=== PATIENT | female | born 1960 | race African-American/Black ===

== ENCOUNTER 2018-12-25 12:19 | Inpatient (IN) | payer OTHER ==
[2018-12-25 12:42] VITALS: BMI 16.8
--- NOTE | 2018-12-25 13:26 | HP ---
CIWA Score Nausea/Vomitin Muscle Tremors: 4-Moderate,w/Arms Extend Anxiety: 4-Mod. Anxious/Guarded Agitation: 3 Paroxysmal Sweats: No Perspiration Orientation: 0-Oriented Tacttile Disturbances: 0-None Auditory Disturbances: 2-Mild Harshness/Frighten Visual Disturbances: 2-Mild Sensitivity Headache: 0-None Present CIWA-Ar Total Score: 17 - Admission Criteria OASAS Guidelines: Admission for Medically Managed Detox: Requires at least one of the followin. CIWA greater than 12 2. Seizures within the past 24 hours 3. Delirium tremens within the past 24 hours 4. Hallucinations within the past 24 hours 5. Acute intervention needed for co occurring medical disorder 6. Acute intervention needed for co occurring psychiatric disorder 7. Severe withdrawal that cannot be handled at a lower level of care (continued vomiting, continued diarrhea, abnormal vital signs) requiring intravenous medication and/or fluids 8. Patient presents the following: CIWA greater than 12 Admission Criteria Met: Admission criteria met Admission ROS S - HPI Allergies/Adverse Reactions: Allergies Allergy/AdvReac Type Severity Reaction Status Date / Time No Known Allergies Allergy Verified 12/25/18 14:06 History of Present Illness: patient here requesting detox from substance use , reports 6-pk beer /day since age 31 , reports drowsiness , denies tremors, + blackouts , denies seizures , latest use yesterday , current ANIYAH 0.002 , reports fall 1 week ago while intoxicated , went to [facility] . , c/o LBP XR neg . cocaine 200-300 $/day denies IVDU , latest use yesterday , use x 10 years tobacco : 2-3 cigs/day PMHx : HIV dx 1992 , ID clinic [facility], latest refill 1 week ago , asthma since age 21 ( hospitalized, not intubated ) PSHx : denies PSych : bipolar d/o , denies current SI / HI meds - see list . Exam Limitations: Clinical Condition - Ebola screening Have you traveled outside of the country in the last 21 days: No Have you had contact with anyone from an Ebola affected area: No Have you been sick,other than usual withdrawal symptoms: No Do you have a fever: No - Review of Systems Constitutional: See HPI EENT: reports: Other (denies dysphagia, reading glasses) Respiratory: reports: See HPI Cardiac: reports: No Symptoms Reported GI: reports: See HPI : reports: No Symptoms Reported Musculoskeletal: reports: Back Pain Integumentary: reports: Rash (x 1 week left side of face) Neuro: reports: See HPI Psychiatric: reports: Orientated x3, Agitated, Anxious Patient History - Patient Medical History Hx Anemia: No Hx Asthma: Yes Hx Chronic Obstructive Pulmonary Disease (COPD): No Hx Cancer: No Hx Cardiac Disorders: No Hx Congestive Heart Failure: No Hx Hypertension: No Hx Hypercholesterolemia: No Hx Pacemaker: No HX Cerebrovascular Accident: No Hx Seizures: No Hx Dementia: No Hx Diabetes: No Hx Gastrointestinal Disorders: No Hx Liver Disease: No Hx Genitourinary Disorders: No Hx Sexually Transmitted Disorders: No Hx Renal Disease (ESRD): No Hx Thyroid Disease: No Hx Human Immunodeficiency Virus (HIV): Yes (not medicated at present ) Hx Hepatitis C: No Hx Depression: Yes (seroquel user ) Hx Suicide Attempt: No Hx Schizophrenia: No - Patient Surgical History Past Surgical History: No Hx Neurologic Surgery: No Hx Cataract Extraction: No Hx Cardiac Surgery: No Hx Lung Surgery: No Hx Breast Surgery: No Hx Breast Biopsy: No Hx Abdominal Surgery: No Hx Appendectomy: No Hx Cholecystectomy: No Hx Genitourinary Surgery: No Hx Section: No Hx Orthopedic Surgery: No Anesthesia Reaction: No - PPD History Date: 12/28/15 - Reproductive History Last Menstrual Period: 01/02/11 (last spotting 1 year ago, had paptest 1 year ago ) - Smoking Cessation Smoking history: Current every day smoker Have you smoked in the past 12 months: Yes Aproximately how many cigarettes per day: 20 Hx Chewing Tobacco Use: No Initiated information on smoking cessation: No - Substances Abused Cocaine Route: Inhalation Frequency: 3-6 times per week Amount used: $100 Age of first use: 21 Date of Last Use: 12/24/18 Alcohol-beer Route: Oral Frequency: Daily Amount used: 1-6 pk. Age of first use: 31 Date of Last Use: 12/24/18 Admission Physical Exam BHS - Vital Signs Vital Signs: Vital Signs - 24 hr 12/25/18 12:33 Temperature 97.8 F Pulse Rate 77 Respiratory 20 Rate Blood Pressure 94/58 L - Physical General Appearance: Yes: Disheveled, Moderate Distress, Alcohol on Breath, Thin , Irritable, Anxious HEENTM: Yes: EOMI, Normocephalic, Normal Voice Respiratory: Yes: Chest Non-Tender, Normal Breath Sounds (o2 sat 98%) Neck: Yes: No masses,lesions,Nodules, Trachea in good position Cardiology: Yes: Regular Rhythm, Regular Rate, S1, S2, Tachycardia Abdominal: Yes: Normal Bowel Sounds, Soft Genitourinary: Yes: Within Normal Limits Back: Yes: Normal Inspection Musculoskeletal: Yes: full range of Motion, Other (unsteady gait) Extremities: Yes: Normal Capillary Refill, Normal Range of Motion, Tremors Neurological: Yes: Motor Strength 5/5 Integumentary: Yes: Normal Color - Diagnostic (1) Alcohol dependence with uncomplicated withdrawal Current Visit: No Status: Acute (2) Asthma Current Visit: No Status: Chronic Qualifiers: Asthma severity: unspecified severity Asthma complication type: uncomplicated (3) Cocaine dependence, uncomplicated Current Visit: No Status: Chronic (4) Nicotine dependence Current Visit: No Status: Chronic Qualifiers: Nicotine product type: cigarettes Substance use status: uncomplicated Qualified Code(s): F17.210 - Nicotine dependence, cigarettes, uncomplicated BHS Breath Alcohol Content Breath Alcohol Content: 0.002 Urine Pregancy Test - Result Urine Test Results: Negative- NO Line Present Urine Drug Screen - Results Drug Screen Negative: No Urine Drug Screen Results: SIERRA-Cocaine, BZO-Benzodiazepines Inpatient Rehab Admission - Rehab Decision to Admit Inpatient rehab admission?: No
[2018-12-25] MEDS ORDERED: NICOTINE POLACRILEX 2 MG GUM BUC PRN (13:36)
[2018-12-25] MEDS ORDERED: MAG HYDROX/AL HYDROX/SIMETH 30 ML UNIT-DOSE CUP PO PRN (13:36)
[2018-12-25] MEDS ORDERED: P-EPHED 60MG/TRIPROLIDI 2.5MG TABLET PO PRN (13:36)
[2018-12-25] MEDS ORDERED: IBUPROFEN 400 MG TABLET (FP) PO PRN (13:36)
[2018-12-25] MEDS ORDERED: MENTHOL/PHENOL 1 EACH UD MM PRN (13:36)
[2018-12-25] MEDS ORDERED: guaiFENesin/D-METHORPHAN HB 10 ML UNIT-DOSE CUPS PO PRN (13:36)
[2018-12-25] MEDS ORDERED: chlordiazePOXIDE HCL 25 MG CAPSULE PO PRN (13:36)
[2018-12-25] MEDS ORDERED: MAGNESIUM HYDROX 2400MG/30ML ORAL SUSPENSION 30 ML CUP PO PRN (13:36)
[2018-12-25] MEDS ORDERED: MAGNESIUM CITRATE 300 ML BOTTLE PO PRN (13:36)
[2018-12-25] MEDS ORDERED: ALBUTEROL SO4 8 GM HFA INHALER IH PRN (13:37)
[2018-12-25] MEDS: ACETAMINOPHEN 325 MG TABLET (FP) PO PRN (16:02)
[2018-12-25] MEDS: chlordiazePOXIDE HCL 25 MG CAPSULE PO SCH ×2 (17:23→22:29)
[2018-12-25] MEDS: IBUPROFEN 400 MG TABLET (FP) PO PRN (18:23)
[2018-12-25] MEDS ORDERED: QUEtiapine FUMARATE 100 MG TABLET (FP) PO SCH (22:00)
[2018-12-25] MEDS ORDERED: MELATONIN 5 MG TABLETS PO PRN (22:00)
[2018-12-25] MEDS: THIAMINE HCL 100 MG TABLET (FP) PO SCH (22:29)
[2018-12-26] MEDS: IBUPROFEN 400 MG TABLET (FP) PO PRN ×3 (01:21→16:59)
[2018-12-26] MEDS: chlordiazePOXIDE HCL 25 MG CAPSULE PO SCH ×2 (06:53→11:08)
[2018-12-26] MEDS: EMTRICITABINE 200MG/TENOFOVIR 300MG PO SCH (08:45)
[2018-12-26] MEDS: DARUNAVIR ETHANOLATE 800 MG TAB PO SCH (08:45)
[2018-12-26] MEDS: RITONAVIR 100 MG TABLET PO SCH (08:45)
[2018-12-26 10:12] LABS: HEMATOCRIT 28.8 % (32.4-45.2); HEMOGLOBIN 9.7 GM/dL (10.7-15.3); MCH 32.4 pg (25.7-33.7); MCHC 33.7 g/dl (32.0-36.0); MEAN CELL VOLUME 96.2 fl (80-96); MEAN PLT VOLUME 9.7 fl (7.5-11.1); PLATELET COUNT 250 K/MM3 (134-434); RDW 14.2 % (11.6-15.6)
[2018-12-26 10:53] LABS: ALBUMIN 2.8 g/dl (3.4-5.0); ALK PHOS 103 U/L (45-117); ANION GAP 8 MMOL/L (8-16); BILIRUBIN,TOTAL 0.2 mg/dL (0.2-1); BLOOD UREA NITROGEN 20 mg/dL (7-18); CALCIUM 8.3 mg/dL (8.5-10.1); CHLORIDE 111 mmol/L (98-107); CO2 23 mmol/L (21-32); CREATININE 0.9 mg/dL (0.55-1.3); GLUCOSE,RANDOM 113 mg/dL (74-106); POTASSIUM 3.7 mmol/L (3.5-5.1); SGOT/AST 29 U/L (15-37); SGPT/ALT 23 U/L (13-61); SODIUM 143 mmol/L (136-145); TOT PROT 7.1 g/dl (6.4-8.2)
[2018-12-26] MEDS: PRENATAL VITAMINS W/ FOLIC ACID TABLET (FP) PO SCH (11:06)
[2018-12-26] MEDS: SULFAMETHOXAZOLE/TRIMETHOPRIM 800MG/160MG D.S. TABLET PO SCH (11:07)
[2018-12-26] MEDS: ACETAMINOPHEN 325 MG TABLET (FP) PO PRN (13:39)
[2018-12-26] MEDS: chlordiazePOXIDE 5 MG CAPSULE PO SCH ×2 (16:58→22:39)
[2018-12-26] MEDS ORDERED: chlordiazePOXIDE HCL 25 MG CAPSULE PO SCH (17:00)
--- NOTE | 2018-12-26 18:20 | PN ---
[facility] CIWA - CIWA Score Nausea/Vomitin-No Nausea/No Vomiting Muscle Tremors: 3 Anxiety: 3 Agitation: 0-Normal Activity Paroxysmal Sweats: 2 Orientation: 0-Oriented Tacttile Disturbances: 0-None Auditory Disturbances: 2-Mild Harshness/Frighten Visual Disturbances: 2-Mild Sensitivity Headache: 0-None Present CIWA-Ar Total Score: 12 S Progress Note (SOAP) Subjective: Sweating, Tremors, Interrupted Sleep. Objective: PATIENT A & O X 3, OBSERVED AMBULATING ON UNIT. IN NO ACUTE DISTRESS. 12/26/18 18:17 Vital Signs Temperature 97.4 F L 12/26/18 14:35 Pulse Rate 75 12/26/18 14:35 Respiratory Rate 18 12/26/18 14:35 Blood Pressure 119/78 12/26/18 14:35 O2 Sat by Pulse Oximetry (%) Laboratory Tests 12/26/18 12/26/18 12/26/18 07:00 07:00 07:00 WBC 4.0 RBC 3.00 L Hgb 9.7 L Hct 28.8 L D MCV 96.2 H MCH 32.4 MCHC 33.7 RDW 14.2 Plt Count 250 MPV 9.7 Sodium 143 Potassium 3.7 Chloride 111 H Carbon Dioxide 23 Anion Gap 8 BUN 20 H Creatinine 0.9 Creat Clearance w eGFR > 60 Random Glucose 113 H Calcium 8.3 L Total Bilirubin 0.2 AST 29 ALT 23 Alkaline Phosphatase 103 Total Protein 7.1 Albumin 2.8 L RPR Titer Nonreactive LABS NOTED. Assessment: 12/26/18 18:17 WITHDRAWAL SYMPTOMS. Plan: CONTINUE DETOX. REPEAT CBC TOMORROW AM DUE TO ABNORMAL ADMISSION (ANEMIA) LEVELS. INCREASE DAILY PO FLUID INTAKE. PATIENT IS CURRENTLY RECEIVING DAILY MVI CONTAINING B VITAMINS AND IRON WHILE ADMITTED FOR DETOX. DUE TO APPARENT LETHARGY ON PART OF PATIENT, DETOX DOSAGES OF LIBRIUM MODIFIED TO SOMEWHAT SMALLER DOSES TO HELP REDUCE LETHARGY FOR REMAINDER OF DETOX ADMISSION.
[2018-12-26] MEDS: THIAMINE HCL 100 MG TABLET (FP) PO SCH (22:40)
[2018-12-27] MEDS: IBUPROFEN 400 MG TABLET (FP) PO PRN ×3 (00:23→19:20)
[2018-12-27] MEDS: chlordiazePOXIDE 5 MG CAPSULE PO SCH (05:25)
[2018-12-27] MEDS ORDERED: INSULIN SLIDING SCALE (NOVOLOG) 1 VIAL SQ ONE (07:57)
[2018-12-27] MEDS: DARUNAVIR ETHANOLATE 800 MG TAB PO SCH (07:58)
[2018-12-27] MEDS: EMTRICITABINE 200MG/TENOFOVIR 300MG PO SCH (07:59)
[2018-12-27] MEDS: RITONAVIR 100 MG TABLET PO SCH (07:59)
[2018-12-27] MEDS: SULFAMETHOXAZOLE/TRIMETHOPRIM 800MG/160MG D.S. TABLET PO SCH ×2 (08:47→10:28)
[2018-12-27] MEDS: PRENATAL VITAMINS W/ FOLIC ACID TABLET (FP) PO SCH ×2 (08:47→10:29)
[2018-12-27] MEDS: chlordiazePOXIDE HCL 10 MG CAPSULE PO SCH ×3 (10:29→22:59)
[2018-12-27] MEDS: ACETAMINOPHEN 325 MG TABLET (FP) PO PRN ×2 (12:12→16:49)
[2018-12-27] MEDS ORDERED: ALBUTEROL SO4 2.5/IPRATROPIUM 0.5 INH SOL 3 ML VIAL.NEB. NEB ONE (13:10)
--- NOTE | 2018-12-27 13:12 | PN ---
[facility] CIWA - CIWA Score Nausea/Vomitin-No Nausea/No Vomiting Muscle Tremors: 2 Anxiety: 4-Mod. Anxious/Guarded Agitation: 0-Normal Activity Paroxysmal Sweats: No Perspiration Orientation: 0-Oriented Tacttile Disturbances: 2-Mild Itch/Numbness/Burn Auditory Disturbances: 0-None Visual Disturbances: 2-Mild Sensitivity Headache: 0-None Present CIWA-Ar Total Score: 10 BHS Progress Note (SOAP) Subjective: Body Aches, Anxious, Tremors. Patient Reports "Chest Pain," X approx. 2 days. Patient Describes Pain as Intermittent and "Burning" in Quality. Patient Points to both sides of Chest and Upper Ribcage areas as areas that are Primarily affected by pain. Patient Reports History of Asthma and that she has experienced similar pain due to Asthma Exacerbation in the past. Objective: PATIENT A & O X 3, OBSERVED AMBULATING ON UNIT. LUNG SOUNDS AUSCULTATED CLEAR AND EQUAL BILATERALLY. S1, S2. NO ADVENTITIOUS HEART SOUNDS AUSCULTATED. STAT ECG ORDERED (RESULT: NORMAL SINUS RHYTHM). 12/27/18 13:18 Vital Signs Temperature 98.6 F 12/27/18 09:19 Pulse Rate 83 12/27/18 09:19 Respiratory Rate 18 12/27/18 09:19 Blood Pressure 103/70 12/27/18 09:19 O2 Sat by Pulse Oximetry (%) Laboratory Tests 12/26/18 12/26/18 12/26/18 07:00 07:00 07:00 WBC 4.0 RBC 3.00 L Hgb 9.7 L Hct 28.8 L D MCV 96.2 H MCH 32.4 MCHC 33.7 RDW 14.2 Plt Count 250 MPV 9.7 Sodium 143 Potassium 3.7 Chloride 111 H Carbon Dioxide 23 Anion Gap 8 BUN 20 H Creatinine 0.9 Creat Clearance w eGFR > 60 Random Glucose 113 H Calcium 8.3 L Total Bilirubin 0.2 AST 29 ALT 23 Alkaline Phosphatase 103 Total Protein 7.1 Albumin 2.8 L RPR Titer Nonreactive LABS NOTED. PATIENT REFUSED TO HAVE REPEAT CBC DRAWN IN ORDER TO DETERMINE IF ANY CHANGE IN RBC, HGB, HCT LEVELS. PATIENT WILL CONTINUE TO RECEIVE MVI THAT CONTAINS B VITAMINS AND IRON ALONG WITH ADDITIONAL THIAMINE FOR REMAINDER OF HER TIME ADMITTED FOR DETOX. 12/27/18 13:25 Assessment: 12/27/18 13:21 WITHDRAWAL SYMPTOMS. Plan: CONTINUE DETOX. DUONEB X 1 NOW ORDERED. PRN DUONEB AND PRN VENTOLIN INHALER ALSO PREVIOUSLY ORDERED. PATIENT ADVISED TO NOTIFY MEDICAL NURSING STAFF LATER IN DAY IF NO IMPROVEMENT IN CHEST PAIN OR IF SYMPTOMS WORSEN AT ANY TIME. PATIENT VERBALIZED UNDERSTANDING OF RECOMMENDATIONS.
--- NOTE | 2018-12-27 14:43 | EKG ---
Test Reason : Blood Pressure : / mmHG Vent. Rate : 072 BPM Atrial Rate : 072 BPM P-R Int : 150 ms QRS Dur : 086 ms QT Int : 394 ms P-R-T Axes : 072 074 066 degrees QTc Int : 431 ms NORMAL SINUS RHYTHM NORMAL ECG NO PREVIOUS ECGS AVAILABLE Confirmed by Milton Marion MD ([id number]) on 12/27/2018 2:43:35 PM Referred By: Confirmed By:Milton Marion MD
[2018-12-27] MEDS ORDERED: chlordiazePOXIDE 5 MG CAPSULE PO SCH (17:00)
[2018-12-27] MEDS: ALBUTEROL SO4 0.083% IH SOL 2.5 MG/3 ML VIAL.NEB. NEB PRN (19:37)
[2018-12-27] MEDS: THIAMINE HCL 100 MG TABLET (FP) PO SCH (23:01)
[2018-12-28] MEDS: IBUPROFEN 400 MG TABLET (FP) PO PRN ×3 (02:50→20:52)
[2018-12-28] MEDS: ALBUTEROL SO4 0.083% IH SOL 2.5 MG/3 ML VIAL.NEB. NEB PRN ×2 (04:30→22:32)
[2018-12-28] MEDS: ACETAMINOPHEN 325 MG TABLET (FP) PO PRN ×2 (06:31→17:01)
[2018-12-28] MEDS: chlordiazePOXIDE 5 MG CAPSULE PO SCH ×4 (06:33→23:37)
[2018-12-28] MEDS: EMTRICITABINE 200MG/TENOFOVIR 300MG PO SCH (07:11)
[2018-12-28] MEDS: RITONAVIR 100 MG TABLET PO SCH (07:11)
[2018-12-28] MEDS: DARUNAVIR ETHANOLATE 800 MG TAB PO SCH (07:11)
[2018-12-28] MEDS: SULFAMETHOXAZOLE/TRIMETHOPRIM 800MG/160MG D.S. TABLET PO SCH (10:26)
[2018-12-28] MEDS: PRENATAL VITAMINS W/ FOLIC ACID TABLET (FP) PO SCH (10:26)
--- NOTE | 2018-12-28 10:50 | PN ---
S CIWA - CIWA Score Nausea/Vomitin-No Nausea/No Vomiting Muscle Tremors: 2 Anxiety: 1-Mildly Anxious Agitation: 1-Slight > Activity Paroxysmal Sweats: 1-Minimal Palms Moist Orientation: 0-Oriented Tacttile Disturbances: 0-None Auditory Disturbances: 0-None Visual Disturbances: 0-None Headache: 1-Very Mild CIWA-Ar Total Score: 6 BHS Progress Note (SOAP) Subjective: feeling better less tremor no sweating mild anxiousness Objective: alcohol withdrawal sx Laboratory Last Values WBC 4.0 K/mm3 (4.0-10.0) 12/26/18 07:00 RBC 3.00 M/mm3 (3.60-5.2) L 12/26/18 07:00 Hgb 9.7 GM/dL (10.7-15.3) L 12/26/18 07:00 Hct 28.8 % (32.4-45.2) L D 12/26/18 07:00 MCV 96.2 fl (80-96) H 12/26/18 07:00 MCH 32.4 pg (25.7-33.7) 12/26/18 07:00 MCHC 33.7 g/dl (32.0-36.0) 12/26/18 07:00 RDW 14.2 % (11.6-15.6) 12/26/18 07:00 Plt Count 250 K/MM3 (134-434) 12/26/18 07:00 MPV 9.7 fl (7.5-11.1) 12/26/18 07:00 Sodium 143 mmol/L (136-145) 12/26/18 07:00 Potassium 3.7 mmol/L (3.5-5.1) 12/26/18 07:00 Chloride 111 mmol/L (98-107) H 12/26/18 07:00 Carbon Dioxide 23 mmol/L (21-32) 12/26/18 07:00 Anion Gap 8 MMOL/L (8-16) 12/26/18 07:00 BUN 20 mg/dL (7-18) H 12/26/18 07:00 Creatinine 0.9 mg/dL (0.55-1.3) 12/26/18 07:00 Creat Clearance w eGFR > 60 (>60) 12/26/18 07:00 Random Glucose 113 mg/dL (74-106) H 12/26/18 07:00 Calcium 8.3 mg/dL (8.5-10.1) L 12/26/18 07:00 Total Bilirubin 0.2 mg/dL (0.2-1) 12/26/18 07:00 AST 29 U/L (15-37) 12/26/18 07:00 ALT 23 U/L (13-61) 12/26/18 07:00 Alkaline Phosphatase 103 U/L (45-117) 12/26/18 07:00 Total Protein 7.1 g/dl (6.4-8.2) 12/26/18 07:00 Albumin 2.8 g/dl (3.4-5.0) L 12/26/18 07:00 RPR Titer Nonreactive (NONREACTIVE) 12/26/18 07:00 lab noted Assessment: 12/28/18 10:54 mild withdrawal sx Plan: continue detox
[2018-12-28] MEDS ORDERED: chlordiazePOXIDE HCL 10 MG CAPSULE PO SCH (17:00)
[2018-12-28] MEDS: THIAMINE HCL 100 MG TABLET (FP) PO SCH (22:42)
[2018-12-29] MEDS: IBUPROFEN 400 MG TABLET (FP) PO PRN (02:21)
[2018-12-29 06:41] VITALS: BP 98/57; PULSE 76; TEMP 97.5
[2018-12-29] MEDS: ACETAMINOPHEN 325 MG TABLET (FP) PO PRN (07:30)
[2018-12-29] MEDS: DARUNAVIR ETHANOLATE 800 MG TAB PO SCH (08:56)
[2018-12-29] MEDS: EMTRICITABINE 200MG/TENOFOVIR 300MG PO SCH (08:57)
[2018-12-29] MEDS: RITONAVIR 100 MG TABLET PO SCH (08:57)
--- NOTE | 2018-12-29 14:20 | DS ---
[facility] Detox Discharge Summary Admission Date: 12/25/18 Discharge Date: 12/29/18 - History Present History: Alcohol Dependence Additional Comments: 58 years old female admitted on 12/25/18 for alcohol withdrawal stabilization [facility] Pertinent Past History: patient agrees to return to infectious disease specialist for medical and mental issues patient refilled her home medication 30 days on 12/23/18 - Physical Exam Results Vital Signs: Vital Signs Temperature 97.5 F L 12/29/18 06:00 Pulse Rate 76 12/29/18 06:00 Respiratory Rate 16 12/29/18 06:00 Blood Pressure 98/57 L 12/29/18 06:00 O2 Sat by Pulse Oximetry (%) Pertinent Admission Physical Exam Findings: alcohol withdrawal sx Laboratory Last Values WBC 4.0 K/mm3 (4.0-10.0) 12/26/18 07:00 RBC 3.00 M/mm3 (3.60-5.2) L 12/26/18 07:00 Hgb 9.7 GM/dL (10.7-15.3) L 12/26/18 07:00 Hct 28.8 % (32.4-45.2) L D 12/26/18 07:00 MCV 96.2 fl (80-96) H 12/26/18 07:00 MCH 32.4 pg (25.7-33.7) 12/26/18 07:00 MCHC 33.7 g/dl (32.0-36.0) 12/26/18 07:00 RDW 14.2 % (11.6-15.6) 12/26/18 07:00 Plt Count 250 K/MM3 (134-434) 12/26/18 07:00 MPV 9.7 fl (7.5-11.1) 12/26/18 07:00 Sodium 143 mmol/L (136-145) 12/26/18 07:00 Potassium 3.7 mmol/L (3.5-5.1) 12/26/18 07:00 Chloride 111 mmol/L (98-107) H 12/26/18 07:00 Carbon Dioxide 23 mmol/L (21-32) 12/26/18 07:00 Anion Gap 8 MMOL/L (8-16) 12/26/18 07:00 BUN 20 mg/dL (7-18) H 12/26/18 07:00 Creatinine 0.9 mg/dL (0.55-1.3) 12/26/18 07:00 Creat Clearance w eGFR > 60 (>60) 12/26/18 07:00 Random Glucose 113 mg/dL (74-106) H 12/26/18 07:00 Calcium 8.3 mg/dL (8.5-10.1) L 12/26/18 07:00 Total Bilirubin 0.2 mg/dL (0.2-1) 12/26/18 07:00 AST 29 U/L (15-37) 12/26/18 07:00 ALT 23 U/L (13-61) 12/26/18 07:00 Alkaline Phosphatase 103 U/L (45-117) 12/26/18 07:00 Total Protein 7.1 g/dl (6.4-8.2) 12/26/18 07:00 Albumin 2.8 g/dl (3.4-5.0) L 12/26/18 07:00 RPR Titer Nonreactive (NONREACTIVE) 12/26/18 07:00 lab noted - Treatment Hospital Course: Detox Protocol Followed, Detoxed Safely, Responded well, Discharged Condition Good, Rehab Referral Accepted Patient [facility] - Medication Discharge Medications: Ambulatory Orders Darunavir Ethanolate [Prezista -] 800 mg PO DAILY 12/26/15 Emtricitabine/Tenofovir [Truvada -] 1 tab PO DAILY 12/26/15 Ritonavir [Norvir -] 100 mg PO DAILY 12/26/15 Quetiapine Fumarate [Seroquel -] 100 mg PO HS #30 tablet 12/27/15 Albuterol Sulfate Inhaler - [Ventolin HFA Inhaler -] 1 - 2 inh PO Q4H PRN #1 inhaler 12/28/18 Sulfamethoxazole/Trimethoprim [Bactrim DS -] 1 each PO DAILY #14 tablet - Diagnosis (1) Alcohol dependence with uncomplicated withdrawal Status: Acute (2) Asthma Status: Chronic Qualifiers: Asthma severity: mild Asthma persistence: intermittent Asthma complication type: uncomplicated Qualified Code(s): J45.20 - Mild intermittent asthma, uncomplicated (3) HIV disease Status: Chronic (4) Nicotine dependence Status: Acute Qualifiers: Nicotine product type: cigarettes Substance use status: in withdrawal Qualified Code(s): F17.213 - Nicotine dependence, cigarettes, with withdrawal (5) Weight decrease Status: Acute - AMA Did Patient Leave Against Medical Advice: No
== END 2018-12-29 09:00 | disposition home or self-care (01) | DRG 775 ==
LOC: YASAS 12:19 → Y3N 14:47
PROVIDERS: ADMIT Surgery; ATTEND Surgery
PROC: HZ2ZZZZ Detoxification Services for Substance Abuse Treatment (ICD-10-PCS; principal; 2018-12-25)
DX: F10.230 Alcohol dependence with withdrawal, uncomplicated (principal); F17.213 Nicotine dependence, cigarettes, with withdrawal; J45.20 Mild intermittent asthma, uncomplicated; Z21 Asymptomatic human immunodeficiency virus [HIV] infection status; R00.0 Tachycardia, unspecified
CPT/HCPCS: 36415; 80053; 85027; 86593; 93005; 93010; 94640

== ENCOUNTER 2019-03-23 12:22 | Inpatient (IN) | payer OTHER ==
[2019-03-23 13:36] VITALS: BMI 18.1
--- NOTE | 2019-03-23 14:33 | HP ---
CIWA Score Nausea/Vomitin Muscle Tremors: 2 Anxiety: 2 Agitation: 2 Paroxysmal Sweats: 1-Minimal Palms Moist Orientation: 0-Oriented Tacttile Disturbances: 1-Very Mild Itch/Numbness Auditory Disturbances: 1-Very Mild Visual Disturbances: 0-None Headache: 2-Mild CIWA-Ar Total Score: 13 - Admission Criteria OASAS Guidelines: Admission for Medically Managed Detox: Requires at least one of the followin. CIWA greater than 12 2. Seizures within the past 24 hours 3. Delirium tremens within the past 24 hours 4. Hallucinations within the past 24 hours 5. Acute intervention needed for co occurring medical disorder 6. Acute intervention needed for co occurring psychiatric disorder 7. Severe withdrawal that cannot be handled at a lower level of care (continued vomiting, continued diarrhea, abnormal vital signs) requiring intravenous medication and/or fluids 8. Admission ROS S - HPI Chief Complaint: i need help to stop drinking alcohol,cocaine,marijuana and heroin abused weight loss hiv since 1998 multiple admissions for detox,last 12/25/18 to 12/29/18 nicotine dependence 3 cigarette asthma rash left facial area plan for rehab after detox Allergies/Adverse Reactions: Allergies Allergy/AdvReac Type Severity Reaction Status Date / Time No Known Allergies Allergy Verified 03/23/19 13:13 History of Present Illness: this 58 years old female with alcohol,cocaine and marijuana dependence,heroin abused, history of hiv asthma for detox as mentioned in chief complaint - Ebola screening Have you traveled outside of the country in the last 21 days: No Have you had contact with anyone from an Ebola affected area: No Do you have a fever: No - Review of Systems Constitutional: Loss of Appetite, Malaise, Night Sweats, Changes in sleep, Weakness, Unintentional Wgt. Loss EENT: reports: Nose Congestion Respiratory: reports: No Symptoms reported, Other (asthma) Cardiac: reports: No Symptoms Reported GI: reports: Nausea, Poor Appetite, Abdominal cramping : reports: No Symptoms Reported Musculoskeletal: reports: Back Pain, Muscle Pain Integumentary: reports: Dryness Neuro: reports: Headache, Tremors Endocrine: reports: No Symptoms Reported Hematology: reports: No Symptoms Reported, Other (hiv) Psychiatric: reports: No Sypmtoms Reported, Judgement Intact, Mood/Affect Appropiate, Orientated x3 Other Systems: Reviewed and Negative Patient History - Patient Medical History Hx Anemia: No Hx Asthma: Yes (on albuterol inhaler) Hx Chronic Obstructive Pulmonary Disease (COPD): No Hx Cancer: No Hx Cardiac Disorders: No Hx Congestive Heart Failure: No Hx Hypertension: No Hx Hypercholesterolemia: No Hx Pacemaker: No HX Cerebrovascular Accident: No Hx Seizures: No Hx Dementia: No Hx Diabetes: No Hx Gastrointestinal Disorders: No Hx Liver Disease: No Hx Genitourinary Disorders: No Hx Sexually Transmitted Disorders: No Hx Renal Disease (ESRD): No Hx Thyroid Disease: No Hx Human Immunodeficiency Virus (HIV): Yes (since 1998) Hx Hepatitis C: No Hx Depression: Yes (seroquel user ) Hx Suicide Attempt: No Hx Bipolar Disorder: No Hx Schizophrenia: No Other Medical History: no sucidal,no homicidal, - Patient Surgical History Past Surgical History: No Hx Neurologic Surgery: No Hx Cataract Extraction: No Hx Cardiac Surgery: No Hx Lung Surgery: No Hx Breast Surgery: No Hx Breast Biopsy: No Hx Abdominal Surgery: No Hx Appendectomy: No Hx Cholecystectomy: No Hx Genitourinary Surgery: No Hx Section: No Hx Orthopedic Surgery: No Anesthesia Reaction: No - PPD History Previous Implant?: Yes Documented Results: Negative w/proof Implanted On Prior [facility] Admission?: Yes Date: 12/27/18 Results: 0 mm PPD to be Administered?: No - Reproductive History Patient is a Female of Child Bearing Age (11 -55 yrs old): No Last Menstrual Period: 01/02/11 (last spotting 1 year ago, had paptest 1 year ago ) Patient : No - Smoking Cessation Smoking history: Current every day smoker Have you smoked in the past 12 months: Yes Aproximately how many cigarettes per day: 3 Hx Chewing Tobacco Use: No Initiated information on smoking cessation: Yes 'Breaking Loose' booklet given: 03/23/19 - Substance & Tx. History Hx Alcohol Use: Yes Hx Substance Use: Yes Substance Use Type: Alcohol, Cocaine, Marijuana, Opiates Hx Substance Use Treatment: Yes (12/25/18 to 12/29/18 [facility]) - Substances abused Heroin Substance route: Inhalation Frequency: 1-2 times per week Amount used: $10 Age of first use: 21 Date of last use: 03/21/19 Cocaine Substance route: Smoking Frequency: 3-6 times per week Amount used: $100 Age of first use: 31 Date of last use: 03/22/19 Marijuana/Hashish Substance route: Smoking Frequency: Daily Amount used: 1 AMELIA Age of first use: 19 Date of last use: 03/22/19 Alcohol Substance route: Oral Frequency: Daily Amount used: 6 CANS OF BEER Age of first use: 31 Date of last use: 03/22/19 Family Disease History - Family Disease History Family History: Denies Admission Physical Exam [facility] - Vital Signs Vital Signs: Vital Signs - 24 hr 03/23/19 03/23/19 13:31 14:15 Temperature 97.3 F L 97.3 F L Pulse Rate 87 87 Respiratory 20 20 Rate Blood Pressure 102/60 102/60 - Physical General Appearance: Yes: Moderate Distress, Tremorous, Irritable, Sweating, Anxious HEENTM: Yes: Normal ENT Inspection, DENAE, Pharynx Normal Respiratory: Yes: Lungs Clear, Normal Breath Sounds, No Respiratory Distress Neck: Yes: Within Normal Limits, Supple, Trachea in good position Breast: Yes: Breast Exam Deferred Cardiology: Yes: Within Normal Limits, Regular Rhythm, Regular Rate, S1, S2 Abdominal: Yes: Within Normal Limits, Normal Bowel Sounds, Non Tender, Flat, Soft Genitourinary: Yes: Within Normal Limits Back: Yes: Within Normal Limits Musculoskeletal: Yes: full range of Motion, Back pain, Muscle Pain Extremities: Yes: Tremors Neurological: Yes: migratory farm hand II-XII NML intact, Alert, Motor Strength 5/5 Integumentary: Yes: Dry Lymphatic: Yes: Within Normal Limits - Diagnostic (1) Alcohol dependence with uncomplicated withdrawal Current Visit: Yes Status: Acute (2) Nicotine dependence Current Visit: Yes Status: Chronic Qualifiers: Nicotine product type: cigarettes Substance use status: in withdrawal Qualified Code(s): F17.213 - Nicotine dependence, cigarettes, with withdrawal (3) Weight decrease Current Visit: No Status: Acute (4) Asthma Current Visit: No Status: Chronic Qualifiers: Asthma severity: mild Asthma persistence: intermittent Asthma complication type: uncomplicated Qualified Code(s): J45.20 - Mild intermittent asthma, uncomplicated (5) Bipolar I disorder Current Visit: No Status: Chronic (6) Cannabis dependence, uncomplicated Current Visit: Yes Status: Chronic (7) Cocaine dependence, uncomplicated Current Visit: Yes Status: Chronic (8) HIV disease Current Visit: No Status: Chronic Cleared for Admission [facility] - Detox or Rehab [facility] Level of Care: Medically Managed Detox Regimen/Protocol: Librium Breathalyzer - Breathalyzer Breathalyzer: 0 Urine Drug Screen - Test Device Lot number: [id number] Expiration date: 10/17/20 - Control Is test valid?: Yes - Results Drug screen NEGATIVE: No Urine drug screen results: THC-Marijuana, SIERRA-Cocaine Inpatient Rehab Admission - Rehab Decision to Admit Inpatient rehab admission?: No
[2019-03-23] MEDS ORDERED: chlordiazePOXIDE HCL 25 MG CAPSULE PO PRN (14:44)
[2019-03-23] MEDS ORDERED: ACETAMINOPHEN 325 MG TABLET (FP) PO PRN ×2 (14:44)
[2019-03-23] MEDS ORDERED: MAGNESIUM HYDROX 2400MG/30ML ORAL SUSPENSION 30 ML CUP PO PRN (14:44)
[2019-03-23] MEDS ORDERED: MELATONIN 5 MG TABLETS PO PRN (14:44)
[2019-03-23] MEDS ORDERED: BISMUTH SUBSALICYLATE 262 MG/15 ML BTL PO PRN (14:44)
[2019-03-23] MEDS ORDERED: METHOCARBAMOL 500 MG TABLET PO PRN (14:44)
[2019-03-23] MEDS ORDERED: MAGNESIUM CITRATE 300 ML BOTTLE PO PRN (14:44)
[2019-03-23] MEDS ORDERED: IBUPROFEN 400 MG TABLET (FP) PO PRN (14:44)
[2019-03-23] MEDS ORDERED: MAG HYDROX/AL HYDROX/SIMETH 30 ML UNIT-DOSE CUP PO PRN (14:44)
[2019-03-23] MEDS ORDERED: hydrOXYzine PAMOATE 25 MG CAPSULE (FP) PO PRN (14:44)
[2019-03-23] MEDS ORDERED: MENTHOL/PHENOL 1 EACH UD MM PRN (14:44)
[2019-03-23] MEDS ORDERED: ALBUTEROL SO4 8 GM HFA INHALER IH PRN (14:48)
--- NOTE | 2019-03-23 16:00 | CONSULT ---
[facility] Psychiatric Consult - Data Date of interview: 03/23/19 Admission source: [facility] Identifying data: Readmission to [facility] for this 58 y/o AA female self- referred for detoxification treatment (cocaine, alcohol, heroin, cannabis). Interviewed at [address] [place] [address]. Patient is single, no dependents, homeless, unemployed and supported on SSI benefits. Substance Abuse History: Discussed in this session. Patient admits to a long- standing history of heroin (inhalation), cocaine, alcohol and cannabis abuse. Details in current [facility] reports as follows : Smoking history: Current every day smoker. Have you smoked in the past 12 months: Yes. Aproximately how many cigarettes per day: 3. Hx Chewing Tobacco Use: No. Initiated information on smoking cessation: Yes. 'Breaking Loose' booklet given: 03/23/19. - Substance & Tx. History. Hx Alcohol Use: Yes. Hx Substance Use: Yes. Substance Use Type : Alcohol, Cocaine, Marijuana, Opiates. Hx Substance Use Treatment: Yes ( to 12/29/18 [facility]). - Substances abused. Heroin. Substance route: Inhalation. Frequency: 1-2 times per week. Amount used: $10. Age of first use : 21. Date of last use: 03/21/19. Cocaine. Substance route: Smoking. Frequency: 3-6 times per week. Amount used: $100. Age of first use: 31. Date of last use: 03/22/19. Marijuana/Hashish. Substance route: Smoking. Frequency: Daily. Amount used: 1 AMELIA. Age of first use: 19. Date of last use: 03/22/19. Alcohol. Substance route: Oral. Frequency: Daily. Amount used: 6 CANS OF BEER. Age of first use: 31. Date of last use: 03/22/19 Medical History: Medical profile is remarkable for HIV infection since 1998 (on ART drugs) and bronchial asthma. Psychiatric History: Patient endorses a history of multiple psychiatric hospitalizations ([facility] in [facility], [facility], [facility]). Reportedly diagnosed with Bipolar Disorder. Early onset of psychiatric illness : age 9-10. Ms Stover reports that she was assigned to Special Education classes and saw a psychiatrist at an early age because of severe behavioral disturbances. " I was a bad girl. I used to fight a lot. The teachers could not deal with me. I was sent to different places ". Most recent psychiatric admission occurred in 2015 ([facility]). Patient is known for chronic non-adherence to psychiatric-medical aftercare. Claims no contact with [employer]PD care providers. Used to be on paroxetine + seroquel (has no recall of last medication intake). Patient denies history of suicide attempts. Additional Comment: Urine drug screen results: THC-Marijuana, SIERRA-Cocaine. Noted. Mental Status Exam - Mental Status Exam Alert and Oriented to: Time, Place, Person Cognitive Function: Good Patient Appearance: Unkempt, Disheveled Mood: Nervous, Withdrawn, Anxious Affect: Mood Congruent Patient Behavior: Fatigued, Appropriate, Cooperative Speech Pattern: Clear Voice Loudness: Normal Thought Process: Goal Oriented Thought Disorder: Not Present Hallucinations: Denies Suicidal Ideation: Denies Homicidal Ideation: Denies Insight/Judgement: Poor Sleep: Fair Appetite: Good Muscle strength/Tone: Normal Gait/Station: Normal Psychiatric Findings - Problem List ([place] 1, 2,3) (1) Alcohol dependence with uncomplicated withdrawal Current Visit: Yes Status: Acute (2) Cannabis dependence, uncomplicated Current Visit: Yes Status: Chronic (3) Cocaine dependence, uncomplicated Current Visit: Yes Status: Chronic (4) Nicotine dependence Current Visit: Yes Status: Chronic Qualifiers: Nicotine product type: cigarettes Substance use status: in withdrawal Qualified Code(s): F17.213 - Nicotine dependence, cigarettes, with withdrawal (5) History of bipolar disorder Current Visit: Yes Status: Chronic (6) Non-compliance Current Visit: Yes Status: Chronic (7) Substance induced mood disorder Current Visit: Yes Status: Chronic - Initial Treatment Plan Initial Treatment Plan: Psychoeducation. Support. Detoxification. Sleep hygiene. AA/NA meetings. Groups. Observation.
[2019-03-23] MEDS: chlordiazePOXIDE HCL 25 MG CAPSULE PO SCH ×2 (16:37→22:23)
[2019-03-23 19:04] LABS: HEMATOCRIT 33.2 % (32.4-45.2); MCH 32.6 pg (25.7-33.7); MCHC 33.1 g/dl (32.0-36.0); MEAN CELL VOLUME 98.6 fl (80-96); MEAN PLT VOLUME 9.9 fl (7.5-11.1); PLATELET COUNT 222 K/MM3 (134-434); RBC 3.37 M/mm3 (3.60-5.2); RDW 15.8 % (11.6-15.6); WHITE BLOOD COUNT 2.7 K/mm3 (4.0-10.0)
[2019-03-23 19:21] LABS: ALBUMIN 3.1 g/dl (3.4-5.0); ALK PHOS 96 U/L (45-117); ANION GAP 7 MMOL/L (8-16); BILIRUBIN,TOTAL 0.5 mg/dL (0.2-1); BLOOD UREA NITROGEN 20 mg/dL (7-18); CHLORIDE 109 mmol/L (98-107); CO2 26 mmol/L (21-32); CREATININE 0.9 mg/dL (0.55-1.3); GLUCOSE,RANDOM 81 mg/dL (74-106); POTASSIUM 4.1 mmol/L (3.5-5.1); SGOT/AST 22 U/L (15-37); SGPT/ALT 21 U/L (13-61); SODIUM 142 mmol/L (136-145); TOT PROT 7.5 g/dl (6.4-8.2)
[2019-03-23] MEDS: THIAMINE HCL 100 MG TABLET (FP) PO SCH (22:23)
[2019-03-24] MEDS: chlordiazePOXIDE HCL 25 MG CAPSULE PO SCH ×4 (05:58→23:02)
[2019-03-24] MEDS: DARUNAVIR ETHANOLATE 800 MG TAB PO SCH (07:19)
[2019-03-24] MEDS: EMTRICITABINE 200MG/TENOFOVIR 300MG PO SCH (07:21)
[2019-03-24] MEDS: RITONAVIR 100 MG TABLET PO SCH (07:21)
[2019-03-24] MEDS: PRENATAL VITAMINS W/ FOLIC ACID TABLET (FP) PO SCH (10:37)
[2019-03-24] MEDS: SULFAMETHOXAZOLE/TRIMETHOPRIM 800MG/160MG D.S. TABLET PO SCH (10:37)
--- NOTE | 2019-03-24 11:39 | PN ---
[facility] CIWA - CIWA Score Nausea/Vomitin-Mild Nausea/No Vomiting Muscle Tremors: 3 Anxiety: 1-Mildly Anxious Agitation: 2 Paroxysmal Sweats: 1-Minimal Palms Moist Orientation: 1-Uncertain about Date Tacttile Disturbances: 1-Very Mild Itch/Numbness Auditory Disturbances: 0-None Visual Disturbances: 0-None Headache: 0-None Present CIWA-Ar Total Score: 10 S Progress Note (SOAP) Subjective: feeling ok today discuss nutrition and risks of alcohol misuse Objective: 03/24/19 11:39 Vital Signs Temperature 98.2 F 03/24/19 09:10 Pulse Rate 18 L 03/24/19 09:10 Respiratory Rate 16 03/24/19 09:10 Blood Pressure 92/60 03/24/19 09:10 O2 Sat by Pulse Oximetry (%) Laboratory Last Values WBC 2.7 K/mm3 (4.0-10.0) L 03/23/19 14:45 RBC 3.37 M/mm3 (3.60-5.2) L 03/23/19 14:45 Hgb 11.0 GM/dL (10.7-15.3) 03/23/19 14:45 Hct 33.2 % (32.4-45.2) D 03/23/19 14:45 MCV 98.6 fl (80-96) H 03/23/19 14:45 MCH 32.6 pg (25.7-33.7) 03/23/19 14:45 MCHC 33.1 g/dl (32.0-36.0) 03/23/19 14:45 RDW 15.8 % (11.6-15.6) H D 03/23/19 14:45 Plt Count 222 K/MM3 (134-434) 03/23/19 14:45 MPV 9.9 fl (7.5-11.1) 03/23/19 14:45 Sodium 142 mmol/L (136-145) 03/23/19 14:45 Potassium 4.1 mmol/L (3.5-5.1) 03/23/19 14:45 Chloride 109 mmol/L (98-107) H 03/23/19 14:45 Carbon Dioxide 26 mmol/L (21-32) 03/23/19 14:45 Anion Gap 7 MMOL/L (8-16) L 03/23/19 14:45 BUN 20 mg/dL (7-18) H 03/23/19 14:45 Creatinine 0.9 mg/dL (0.55-1.3) 03/23/19 14:45 Creat Clearance w eGFR 64.54 (>60) 03/23/19 14:45 Random Glucose 81 mg/dL (74-106) 03/23/19 14:45 Calcium 8.0 mg/dL (8.5-10.1) L 03/23/19 14:45 Total Bilirubin 0.5 mg/dL (0.2-1) 03/23/19 14:45 AST 22 U/L (15-37) 03/23/19 14:45 ALT 21 U/L (13-61) 03/23/19 14:45 Alkaline Phosphatase 96 U/L (45-117) 03/23/19 14:45 Total Protein 7.5 g/dl (6.4-8.2) 03/23/19 14:45 Albumin 3.1 g/dl (3.4-5.0) L 03/23/19 14:45 lab noted chronic low wbc follow up with infectious disease specialist Assessment: 03/24/19 11:40 withdrawal sx Plan: continue detox
--- NOTE | 2019-03-24 16:49 | PN ---
S Progress Note Note: Psychiatry Attending's note (follow-up) : Approached by the patient. " I need my seroquel ". Indications + side effects are discussed. Seroquel 50 mg po hs. Ordered.
[2019-03-24] MEDS ORDERED: diphenhydrAMINE HCL 50 MG CAPSULE PO ONE (18:00)
[2019-03-24] MEDS ORDERED: diphenhydrAMINE HCL 25 MG CAPSULE (FP) PO ONE (18:02)
[2019-03-24] MEDS ORDERED: ALBUTEROL SO4 0.083% IH SOL 2.5 MG/3 ML VIAL.NEB. NEB ONE ×2 (18:45→21:55)
[2019-03-24] MEDS ORDERED: HYDROCORTISONE 0.5% TOPICAL CREAM 30 GM TUBE TP PRN (19:19)
--- NOTE | 2019-03-24 19:24 | PN ---
S Progress Note Note: pt states she feels like her chest is tight- given one albuterol inh> pt states feels better but still tight> lungs clear no wheezing noted on PE, pulse ox 99. Pt given second dose of albuterol. pt c/o of itching skin of face- says she has had this for a while- pt was given benadryl po and ointment for itching. Will add hydrocortisone prn
[2019-03-24] MEDS ORDERED: ALBUTEROL SO4 0.042% IH SOL 1.25 MG/3 ML VIAL.NEB NEB ONE (21:00)
[2019-03-24] MEDS: THIAMINE HCL 100 MG TABLET (FP) PO SCH (21:56)
[2019-03-24] MEDS ORDERED: QUEtiapine FUMARATE 50 MG TABLET PO SCH (22:00)
[2019-03-25] MEDS: chlordiazePOXIDE HCL 25 MG CAPSULE PO SCH ×2 (06:10→10:19)
[2019-03-25] MEDS: DARUNAVIR ETHANOLATE 800 MG TAB PO SCH (07:39)
[2019-03-25] MEDS: RITONAVIR 100 MG TABLET PO SCH (07:40)
[2019-03-25] MEDS: EMTRICITABINE 200MG/TENOFOVIR 300MG PO SCH (07:40)
[2019-03-25] MEDS: PRENATAL VITAMINS W/ FOLIC ACID TABLET (FP) PO SCH (10:19)
[2019-03-25] MEDS: SULFAMETHOXAZOLE/TRIMETHOPRIM 800MG/160MG D.S. TABLET PO SCH (10:19)
[2019-03-25] MEDS ORDERED: chlordiazePOXIDE HCL 10 MG CAPSULE PO SCH (17:00)
[2019-03-25] MEDS ORDERED: chlordiazePOXIDE HCL 10 MG CAPSULE PO PRN (17:00)
[2019-03-25 18:06] VITALS: BP 106/66; PULSE 88; TEMP 98.2
--- NOTE | 2019-03-25 18:06 | DS ---
[facility] Detox Discharge Summary Admission Date: 03/23/19 Discharge Date: 03/25/19 - History Present History: Alcohol Dependence Additional Comments: pt states she has a family emergency and so has to leave AMA today. Pt was started on librium detox protocol. She was also given treatment for asthma yesterday with nebulized treatments. - Physical Exam Results Vital Signs: Vital Signs Temperature 97.1 F L 03/25/19 10:41 Pulse Rate 101 H 03/25/19 10:41 Respiratory Rate 18 03/25/19 10:41 Blood Pressure 130/78 03/25/19 10:41 O2 Sat by Pulse Oximetry (%) Pertinent Admission Physical Exam Findings: h/o hiv since 1998 multiple admissions for detox nicotine dependence 3 cigarette asthma - Medication Discharge Medications: Ambulatory Orders Darunavir Ethanolate [Prezista -] 800 mg PO DAILY 12/26/15 Emtricitabine/Tenofovir [Truvada -] 1 tab PO DAILY 12/26/15 Ritonavir [Norvir -] 100 mg PO DAILY 12/26/15 Quetiapine Fumarate [Seroquel -] 100 mg PO HS #30 tablet 12/27/15 Albuterol Sulfate Inhaler - [Ventolin HFA Inhaler -] 1 - 2 inh PO Q4H PRN #1 inhaler 12/28/18 Sulfamethoxazole/Trimethoprim [Bactrim DS -] 1 each PO DAILY #14 tablet - Diagnosis (1) Nicotine dependence Current Visit: Yes Status: Chronic Qualifiers: Nicotine product type: cigarettes Substance use status: in withdrawal Qualified Code(s): F17.213 - Nicotine dependence, cigarettes, with withdrawal (2) Asthma Current Visit: No Status: Chronic Qualifiers: Asthma severity: mild Asthma persistence: intermittent Asthma complication type: uncomplicated Qualified Code(s): J45.20 - Mild intermittent asthma, uncomplicated (3) HIV disease Current Visit: No Status: Chronic - AMA Did Patient Leave Against Medical Advice: Yes
[2019-03-26] MEDS ORDERED: chlordiazePOXIDE HCL 10 MG CAPSULE PO SCH (17:00)
== END 2019-03-25 16:24 | disposition left against medical advice (07) | DRG 770 ==
LOC: YASAS 12:22 → Y3N 14:51
PROVIDERS: ADMIT Surgery; ATTEND Surgery
PROC: HZ2ZZZZ Detoxification Services for Substance Abuse Treatment (ICD-10-PCS; principal; 2019-03-23)
DX: F10.230 Alcohol dependence with withdrawal, uncomplicated (principal); F14.20 Cocaine dependence, uncomplicated; F12.20 Cannabis dependence, uncomplicated; F17.213 Nicotine dependence, cigarettes, with withdrawal; F19.24 Other psychoactive substance dependence with psychoactive substance-induced mood disorder; F31.89 Other bipolar disorder; Z21 Asymptomatic human immunodeficiency virus [HIV] infection status; J45.20 Mild intermittent asthma, uncomplicated; R07.89 Other chest pain; D72.819 Decreased white blood cell count, unspecified; R12 Heartburn; R63.4 Abnormal weight loss; Z91.14 Patient's other noncompliance with medication regimen
CPT/HCPCS: 36415; 80053; 85027; 86593; 94640